=== PATIENT | male | born 2000 | race Caucasian/White ===

== ENCOUNTER 2022-06-14 18:25 | Emergency (ER) | payer OTHER, SELFPAY ==
[2022-06-14 18:30] VITALS: BP 150/77; PULSE 104; RESP 20; TEMP 38.4; O2SAT 99
--- NOTE | 2022-06-14 19:20 | ED.URI ---
HPI - URI/Sore Throat General Chief Complaint: Upper Respiratory Infection Stated Complaint: fever; sore throat; headache; ear ache Time Seen by Provider: 06/14/22 19:10 Source: patient, RN notes reviewed and old records reviewed Mode of arrival: ambulatory Limitations: no limitations History of Present Illness HPI Narrative: 21 year old male who presents to [facility] care with complaints of cough, sore throat, rhinorrhea, nasal congestion, headache, and ear pain with fevers for past week. He reports that he has been taking DayQuil and Ibuprofen for his symptoms with fever of 101.1F at time of triage..Reports that his girlfriend has been ill also. Patient denies any shortness of breath, chest pain or any nausea,vomiting or diarrhea MD elicited complaint: fever, cough, sore throat, rhinorrhea, nasal congestion and other (ear pain) Pertinent past history: other (past ear tubes and T&A) Onset (ago): week(s) (1) Pain scale (0-10): 4 Able to tolerate fluids by mouth: Yes Treatments prior to arrival: acetaminophen, ibuprofen and cold medicine Related Data Home Medications Medication Instructions Recorded Confirmed dexmethylphenidate 10 mg tablet 10 mg PO QAM 06/14/22 06/14/22 (Focalin) Allergies Allergy/AdvReac Type Severity Reaction Status Date / Time No Known Allergies Allergy Verified 06/14/22 18:54 Review of Systems Review of Systems: CONSTITUTIONAL: reports malaise, chills, sweats, or fever. EYES: Denies visual changes, redness, or discharge. ENT: Reports rhinorrhea, congestion, sinus pain,right otalgia and sore throat. CARDIOVASCULAR: Denies chest pain, palpitations, or edema. RESPIRATORY: Reports cough.? Denies dyspnea. GASTROINTESTINAL: Denies abdominal pain, nausea, vomiting, diarrhea SKIN: Denies rash or itching. MUSCULOSKELETAL: Denies myalgia. NEUROLOGIC:reports headache. All systems reviewed & are unremarkable except as noted in HPI and below PMFSH Past Medical History Medical History (Updated 06/16/22 @ 08:20 by Blanca Putnam NP) Ear infection Surgical History Surgical History (Updated 06/14/22 @ 19:43 by Blanca Putnam NP) History of placement of ear tubes S/P tonsillectomy and adenoidectomy Comments At time of signature, agree with nursing past medical, surgical, social and family history. There is no relevant family history pertinent to the presenting complaint Exam Narrative: GENERAL: Well-appearing, well-nourished, and in no acute distress. HEAD: Normocephalic EYES: PERRLA, conjunctivae clear ENT: Nares clear, turbinates edematous and erythematous, clear to light yellow discharge. Mucous membranes moist.Right TM red and bulging, Left TM pearly alexander with dull light reflex; no tragal tenderness. Oropharynx erythematous without lesions. Tonsils not present and throat without exudate, no drooling, no hoarseness, no trismus, uvula midline, post nasal drainage. NECK: Supple. No lymphadenopathy CHEST: Clear to auscultation, breath sounds equal. No wheezing, rhonchi, rales, or stridor. No respiratory distress, speaks in full sentences.cough SAO2 99% on room air HEART: Regular rate and rhythm. No murmur heard. SKIN: Warm, dry, no rash. NEURO: Alert and oriented x3. PSYCH: Normal mood and affect Course Course Emergency Course: Patient is aware of diagnosis, understands and agrees to treatment plan.? Anticipatory guidance given.? Patient agrees to follow-up as directed and is aware of reasons to seek care at the emergency department. Portions of this record may have been created with voice recognition software Level of Care: Express Care Visit Vital Signs Vital signs: Vital Signs Temperature 38.4 C H 06/14/22 18:30 Pulse Rate 104 H 06/14/22 18:30 Respiratory Rate 20 06/14/22 18:30 Blood Pressure 150/77 H 06/14/22 18:30 Pulse Oximetry 99 06/14/22 18:30 Oxygen Delivery Room Air 06/14/22 18:30 Temperature 38.4 C H 06/14/22 18:30
== END 2022-06-14 19:30 | disposition home or self-care (01) ==
PROVIDERS: Emergency Provider Registered Nurse; PCP Pediatrics
DX: H66.90 Otitis media, unspecified, unspecified ear (principal); J06.9 Acute upper respiratory infection, unspecified; Z20.822 Contact with and (suspected) exposure to COVID-19
CPT/HCPCS: 87081; 87426; 87880; 99203; C9803; G0463

== ENCOUNTER 2023-09-22 17:35 | Emergency (ER) | payer OTHER, SELFPAY ==
[2023-09-22 17:42] VITALS: BP 121/79; PULSE 119; RESP 16; TEMP 38.1; O2SAT 98
--- NOTE | 2023-09-22 18:12 | ED.URI ---
HPI - URI/Sore Throat General Chief Complaint: Upper Respiratory Infection Stated Complaint: Fever/Sore Throat Time Seen by Provider: 09/22/23 18:10 Source: patient, RN notes reviewed and old records reviewed Mode of arrival: ambulatory Limitations: no limitations History of Present Illness HPI Narrative: 22-year-old male who presents to [facility] Care with complaints 1 day duration sore throat, bilateral ear pressure, nasal congestion and drainage and fevers up to 102F. Patient reports that he has been taking Tylenol for his discomfort and his pain. Patient reports history of ear tubes as child and ear infections. Patient reports history of previous tonsillectomy and adenoidectomy. MD elicited complaint: fever, sore throat, rhinorrhea, nasal congestion and other (ear pain) Pertinent past history: tympanostony tubes and other (tonsillitis) Onset (ago): day(s) (1) Pain scale (0-10): 6 Able to tolerate fluids by mouth: Yes Treatments prior to arrival: acetaminophen Related Data Allergies Allergy/AdvReac Type Severity Reaction Status Date / Time No Known Allergies Allergy Verified 06/14/22 18:54 Review of Systems Review of Systems: CONSTITUTIONAL: Reports malaise, chills, sweats, or fever. EYES: Denies visual changes, redness, or discharge. ENT: Reports rhinorrhea, congestion,no sinus pain,bilateral otalgia and positive for sore throat. CARDIOVASCULAR: Denies chest pain, palpitations, or edema. RESPIRATORY: Reports no cough.? Denies dyspnea. GASTROINTESTINAL: Denies abdominal pain, nausea, vomiting, diarrhea SKIN: Denies rash or itching. MUSCULOSKELETAL: Denies myalgia. NEUROLOGIC: Denies headache. All systems reviewed & are unremarkable except as noted in HPI and below PMFSH Past Medical History Medical History Ear infection Surgical History Surgical History History of placement of ear tubes S/P tonsillectomy and adenoidectomy Social History Social History Smoking status: Never smoker Alcohol intake: never Substance use type: does not use Living arrangements: with family Gender identity (if verbalized by the patient): Male Comments At time of signature, agree with nursing past medical, surgical, social and family history. There is no relevant family history pertinent to the presenting complaint Exam Narrative: GENERAL: Well-appearing, well-nourished, and in no acute distress. HEAD: Normocephalic EYES: PERRLA, conjunctivae clear ENT: Nares clear, turbinates edematous and erythematous, clear discharge. Mucous membranes moist. Left TM red and bulging, right TM pearly alexander with dull light reflex bilaterally; no tragal tenderness. Oropharynx erythematous without lesions. Tonsils not present throat without exudate, no drooling, positive for hoarseness, no trismus, uvula midline. NECK: Supple. lymphadenopathy CHEST: Clear to auscultation, breath sounds equal. No wheezing, rhonchi, rales, or stridor. No respiratory distress, speaks in full sentences.SAO2 98% on room air HEART: Regular rate and rhythm. No murmur heard. SKIN: Warm, dry, no rash. NEURO: Alert and oriented x3. PSYCH: Normal mood and affect Course Course Emergency Course: Patient is aware of diagnosis, understands and agrees to treatment plan.? Anticipatory guidance given.? Patient agrees to follow-up as directed and is aware of reasons to seek care at the emergency department. Portions of this record may have been created with voice recognition software Level of Care: Express Care Visit Vital Signs Vital signs: Vital Signs Temperature 38.1 C H 09/22/23 17:42 Pulse Rate 119 H 09/22/23 17:42 Respiratory Rate 16 09/22/23 17:42 Blood Pressure 121/79 09/22/23 17:42 Pulse Oximetry 98 09/22/23 17:42 Oxygen Delivery Room Air 0
== END 2023-09-22 18:39 | disposition home or self-care (01) ==
PROVIDERS: Emergency Provider Registered Nurse
DX: H65.02 Acute serous otitis media, left ear (principal); J02.9 Acute pharyngitis, unspecified
CPT/HCPCS: 87081; 87880; 99213; G0463

== ENCOUNTER 2024-05-17 17:34 | Emergency (ER) | payer OTHER, SELFPAY ==
[2024-05-17 17:52] VITALS: BP 132/82; PULSE 78; RESP 16; TEMP 36.7; O2SAT 100
--- NOTE | 2024-05-17 18:06 | ED_ITS ---
HPI - Ear Problem General Chief complaint: Ear Stated complaint: ear pressure,throb Time Seen by Provider: 05/17/24 18:06 Source: patient, RN notes reviewed and old records reviewed Mode of arrival: ambulatory Limitations: no limitations History of Present Illness HPI Narrative: Patient presents with complaints of right ear pain and pressure. He states symptoms have been intermittent for the past week or so. He has not been taking any medication for symptoms. He does have a history frequent ear infections. He denies any fever, chills, sweats. He does report slightly runny nose. Voices no other concerns or complaints at this Related Data Allergies Allergy/AdvReac Type Severity Reaction Status Date / Time No Known Allergies Allergy Verified 05/17/24 18:02 Review of Systems Review of Systems: All systems reviewed & are unremarkable except as noted in HPI and below Constitutional: Constitutional: Reports no additional constitutional complaints ENT: Reports system reviewed and no additional complaints, except as documented, Reports otalgia and Reports nasal discharge Cardiovascular: Cardiovascular: Reports no additional cardiovascular complaints Respiratory: Respiratory: Reports no additional respiratory complaints Gastrointestinal: Gastrointestinal: Reports no additional gastrointestinal complaints [facility] Past Medical History Medical History Ear infection Surgical History Surgical History S/P tonsillectomy and adenoidectomy History of placement of ear tubes Social History Social History Smoking status: Never smoker Alcohol intake: never Substance use type: does not use Living arrangements: with family Gender identity (if verbalized by the patient): Male Comments At the time of my signature, I reviewed and agree with the nursing past medical, surgical, social, and family history. There is no relevant family history pertinent to the patient complaint. Exam Const: General: cooperative, no acute distress, alert and awake Orientation/consciousness: oriented to person, oriented to place and oriented to time HENMT: Head: normal to inspection Ears: TM abnormal with fluid behind the TM bilateral, with loss of landmarks bilateral and scarred bilateral Resp: Effort & Inspection: normal respiratory effort and able to speak in complete sentences Auscultation: clear to auscultation bilaterally, no crac kles, no rales, no rhonchi and no wheezes Cardio: Palpation: normal PMI Rate: regular rate Rhythm: regular rhythm Heart sounds: S1 normal heart sound present and S2 normal heart sound present Neuro: General: oriented to person, oriented to place and oriented to time Cranial nerves: Yes CN's II-XII intact bilaterally Psych: Appearance: grossly normal Thought process: Normal thought process present Insight: Good insight present (Psych) Judgement: Good judgement present (Psych) Course Course Level of Care: Express Care Visit Vital Signs Vital signs: Vital Signs Temperature 98.1 F 05/17/24 17:52 Pulse Rate 78 05/17/24 17:52 Respiratory Rate 16 05/17/24 17:52 Blood Pressure 132/82 05/17/24 17:52 Pulse Oximetry 100 05/17/24 17:52 Oxygen Delivery Room Air 05/17/24 17:52 Temperature 98.1 F 05/17/24 17:52 Pulse Rate 78 05/17/24 17:52 Respiratory Rate 16 05/17/24 17:52 Blood Pressure 132/82 05/17/24 17:52 Pulse Oximetry 100 05/17/24 17:52 Oxygen Delivery Room Air 05/17/24 17:52 Reviewed Medical Decision Making MDM Narrative Medical decision making narrative: Fluid behind both TMs, start steroid burst. Patient advised follow with primary care provider. Emergency department for new or worse symptoms Discharge instructions reviewed with patient, as well as provided in writing per nursing staff. The instructions also include specific and strict return/GO TO THE ER as well as f/u information. All questions have been answered, and the patient deny any further questions wi th discharge and discharge plan. Some parts of this dictation were generated by voice recognition software and may contain typographical and/or grammatical inaccuracies. Vital Signs Vital Signs: Vital Signs Temperature 98.1 F 05/17/24 17:52 Pulse Rate 78 05/17/24 17:52 Respiratory Rate 16 05/17/24 17:52 Blood Pressure 132/82 05/17/24 17:52 Pulse Oximetry 100 05/17/24 17:52 Oxygen Delivery Room Air 05/17/24 17:52 Temperature 98.1 F 05/17/24 17:52 Pulse Rate 78 05/17/24 17:52 Respiratory Rate 16 05/17/24 17:52 Blood Pressure 132/82 05/17/24 17:52 Pulse Oximetry 100 05/17/24 17:52 Oxygen Delivery Room Air 05/17/24 17:52 reviewed Lab Data Lab results reviewed: Yes I reviewed the patient's lab results. Lab results narrative: reviewed Discharge Plan Discharge Clinical Impression: Otalgia Qualifiers: Laterality: bilateral Qualified Code(s): H92.03 - Otalgia, bilateral Patient Disposition: Home, Self-Care Condition: Stable Instructions: Antibiotic Form, Earache (ED) Additional Instructions: Take medications as prescribed. Follow-up with primary care provider. Emergency department for new or worse symptoms Patient Language: [place] Prescriptions: New prednisone 50 mg tablet 50 mg PO DAILY Qty: 5 0RF Follow-up/Referrals: PHYSICIAN,CERTIFIED CORPORATE TRAVEL EXECUTIVE [Primary Care Provider] - 2 Weeks Time of Disposition: 18:18
[2024-05-17 18:10] LABS: EDSTREPNEGPOS1 Negative (Negative)
== END 2024-05-17 18:20 | disposition home or self-care (01) ==
PROVIDERS: Emergency Provider Nurse Practitioner Family
DX: H92.03 Otalgia, bilateral (principal)
CPT/HCPCS: 87081; 87880; 99213; G0463